=== PATIENT | male | born 1960 | race Caucasian/White ===

== ENCOUNTER 2016-12-15 14:23 | Inpatient (IN) | payer OTHER ==
--- NOTE | ~2016-12-15 | IDS ---
Interim Discharge Summary [facility] [address] [place]. [address] NAME: DOMINIQUE CORREIA : 64 STATUS : ADM IN [facility]#: [id number] AGE: 56 ADM/REG DATE : 12/15/16 MR#: [id number] REPORT SERV DATE: 12/18/16 DICTATED BY: WINNIE CASTELLANOS DATE: 12/18/16 REPORT STATUS : Draft TRANSCRIBED BY: MODL DATE: 12/18/16 ADMISSION DATE: 12/15/2016 DISCHARGE DATE: CONSULTANTS: 1. Dr. Shankar Licea, Infectious Disease. 2. Dr. Ryan Shirley, Psychiatry. PROBLEM LIST: 1. AIDS in a gentleman who has not been compliant with anti-retroviral therapy. 2. Community-acquired pneumonia versus Pneumocystis carinii pneumonia. 3. Antwr-pv-ikjlsnx neutropenia. 4. Thrombocytopenia. 5. Acute kidney injury. 6. Bipolar disorder with severe anxiety and insomnia. 7. Chronic hepatitis C without treatment. 8. Splenomegaly. 9. History of IV drug abuse. 10.Hypokalemia. 11.Chronic nausea. 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 The [facility] and has been seeing an [facility] Disease specialist with the [facility] in [place], but because of the patient's noncompliance with his anti-retroviral therapy, he was advised that it is better for him to not take it at all than it was to take it intermittently, so he has not taken it for quite some time now. The patient had gone to the ER at [facility] a few days ago with increased shortness of breath, increased cough, and was given a prescription for Bactrim and Tessalon Perles. He did not fill the Tessalon Perles prescription. He did fill the Bactrim prescription. He came to the emergency room at [facility] because of complaints of nausea, vomiting, and stated he was not keeping anything down and he was noted to have acute kidney injury and was felt on CT to have basilar pneumonia. The patient is at high risk for not only community-acquired pneumonia, but opportunistic infections including recurrent Pneumocystis. We have sent out a CD4 count, it is not back yet. He does not have any oral thrush. We have initiated full-dose Bactrim intravenously with Infectious Disease concurring. We initially had him on Rocephin and azithromycin, but his procalcitonin level was 0.05, so Infectious Disease discontinued the azithromycin and the Rocephin. The patient has significant neutropenia. On presentation, his white count was 2.6, currently dropped to 0.5 with an absolute neutrophil count of 250 right now. He has anemia that is also chronic and a thrombocytopenia that is also chronic, but worse now than it has been in the past. This could very well be on the basis of his advanced AIDS with hepatitis Interim Discharge Summary [facility] [address] [place]. [address] NAME: DOMINIQUE CORREIA : 64 STATUS : ADM IN PAT#: [id number] AGE: 56 ADM/REG DATE : 12/15/16 MR#: [id number] REPORT SERV DATE: 12/18/16 DICTATED BY: WINNIE CASTELLANOS DATE: 12/18/16 REPORT STATUS : Draft TRANSCRIBED BY: YELENA DATE: 12/18/16 C, but we were concerned about the possibility of Bactrim aggravating this, so we are considering whether to stop it or not. The patient also has a mild acute kidney injury. His creatinine on admission was 1.59, currently 1.44. He has good urinary output. The patient's complaints of nausea and vomiting have been somewhat challenging. He states that almost all foods make him gag and feel nauseated. He states this has been this way almost all of his life. He describes through childhood, teenage years, and through the service in the past, he had problems with nausea and vomiting. Of his own, he states that his nausea and vomiting gets much worse whenever he is nervous and upset. He has a history of bipolar disorder. He states [facility] but he and his daughter told me that that nurse practitioner "tells us that they are not allowed to prescribe anything for his bipolar disorder until he sees a psychiatrist." He also goes on to state that he has not been able to actually get in to see a psychiatrist at the [facility]. As a result of this, I did ask Dr. Ryan hSirley of Psychiatry to see him here. He felt the patient did have a mood disorder and a history of polysubstance abuse, but he did not want to initiate any psychotropic medications. However, the patient here was constantly restless, literally moving arms, legs, face, could not sleep, very anxious. This appeared to me to be quite out of control and the patient was feeling like it was making much more nauseated all the time. As a result, I talked with the patient about and started him on Depakote and have gradually added Klonopin. Since that, the patient has finally slept, which he stated he had not for about three nights and he is much more calm, much more cooperative, and in fact his nausea is improved. On the subject of the nausea, he is very much wanting GI to see him and to consider endoscopy. He himself realizes that it is very possible that his nausea is a chronic part of his psychiatric illness, but he wants to make sure. When he presented to the emergency room, they actually did do a CT scan of the abdomen and pelvis, which was only remarkable for the bibasilar infiltrate and for splenomegaly, it was otherwise unremarkable. His lipase has been low, and on physical exam, when he is talking and I am able to palpate his abdomen with my stethoscope, he has no pain reaction, but when asked, he states he always has pain in his abdomen, he is always nauseated. So, I have asked GI to at least consult and give their opinion on this situation. Infectious Disease, Dr. Licea is suggesting that the patient be on hospice because he has end-stage AIDS and is not able to be compliant with anti-retroviral therapy. I have tried to broach the subject with the patient and discussed his code status. At that point in time, he got very nervous, very irritable, and very tangential, that was prior to when he had been started on Klonopin, so I will try to have those discussions again with him. ADAM/YELENA Winnie Castellanos M.D. Interim Discharge Summary [address] [facility] [place] [place]. [address] NAME: DOMINIQUE CORREIA : 64 STATUS : ADM IN PAT#: [id number] AGE: 56 ADM/REG DATE : 12/15/16 MR#: [id number] REPORT SERV DATE: 12/18/16 DICTATED BY: WINNIE CASTELLANOS DATE: 12/18/16 REPORT STATUS : Draft TRANSCRIBED BY: REL DATE: 12/18/16 / [id number] CC: Winnie Castellanos M.D.
--- NOTE | ~2016-12-15 | CN ---
Consultation Report [facility] [address] [place]. [address] NAME: DOMINIQUE SLAUGHTER : 64 STATUS : ADM IN PAT#: [id number] AGE: 56 ADM/REG DATE : 12/15/16 MR#: [id number] REPORT SERV DATE: 12/19/16 DICTATED BY: SE HERNÁNDEZ DATE: 12/19/16 REPORT STATUS : Draft TRANSCRIBED BY: MODMatt DATE: 12/19/16 GI CONSULTATION DATE OF CONSULTATION: 12/19/2016 REASON FOR CONSULTATION: Evaluation and management of chronic nausea. HISTORY OF PRESENT ILLNESS: Mr. Slaughter is a 56-year-old male patient, who was admitted to [facility] on 12/15 with a chief complaint of nausea, vomiting, abdominal tenderness, as well as shortness of breath. The patient has a history of known HIV, who does not take antiretrovirals as he should. He states this is secondary to depression and confusion as if he has taken his meds or not. His daughter is present at the bedside during our conversation. He was last seen at [facility] in 2014 for Pneumocystis carinii pneumonia. He admits to not taking antiretrovirals. He also has a known history of hepatitis C. he has been seen by Dr. Licea of Infectious Disease as well as Psychiatry, Dr. Shirley while being here. He has AIDS and noncompliant with antiretrovirals, hepatitis C, community-acquired pneumonia versus Pneumocystis carinii pneumonia. Also, has acute on chronic neutropenia and thrombocytopenia with his absolute neutrophil count presently being 0.30; bipolar with anxiety, insomnia, and depression; history of IV drug abuse and chronic nausea. In regard to his nausea, he states that he has had problems with his stomach since the age of 15. He was never formally worked up for this by EGD or colonoscopy. He states that he was seen by a physician while he was in the [employer], but was just given antireflux medications, which really did nothing for his trouble. His daughter states that typically, he is able to eat and drink, but for the past two weeks prior to hospitalization, he had trouble keeping down water, she states he would drink and it would just come back up. Secondary to those complaints and her seeing that he was unable to keep up his hydration, she brought him in. He had a CT scan done on 12/15/2016, which was a noncontrasted exam. It revealed no definite acute abnormality in the abdomen or pelvis. He had splenomegaly, the spleen measured up to 15.1 cm, as well as bilateral infiltrates. Presently, he states he is still unable to take in much by mouth and keep it down. Secondary to his continued complaints of nausea and anorexia, GI consultation was requested. It appears by review of records that Infectious Disease has suggested that the patient be on hospice because of him being end-stage AIDS and not able to be compliant with his antiretroviral therapy; however, it appears the patient became irritable at this discussion and has not been broached again with it. I have discussed with the patient and his daughter, who is his medical power of divorce attorney who is present at the bedside, I would have to review the patient's labs with Dr. aRmos prior to putting him on for endoscopy secondary to his low white count, his low platelet count, as well as his low absolute neutrophil count. I did discuss with him if he is a candidate for EGD, he would be sedated with propofol and he would have increased risk. The risks, benefits, alternatives, and complications were detailed for them to include, but not limited to risk of bleeding, perforation, infection, reaction to medication, as well as cardiac and pulmonary side effects. He gives consent if he is deemed appropriate for endoscopy. Consultation Report [place] [place] [id number] [place]. [address] NAME: DOMINIQUE SLAUGHTER : 64 STATUS : ADM IN [facility]#: [id number] AGE: 56 ADM/REG DATE : 12/15/16 MR#: [id number] REPORT SERV DATE: 12/19/16 DICTATED BY: SE HERNÁNDEZ DATE: 12/19/16 REPORT STATUS : Draft TRANSCRIBED BY: MODL DATE: 12/19/16 PAST MEDICAL HISTORY: Positive for HIV/AIDS, hepatitis C, IV drug abuse, bipolar disorder, anxiety, depression, COPD, reflux, tobacco abuse. PAST SURGICAL HISTORY: Dental extraction. SOCIAL HISTORY: Smoking one pack per day. Positive for cocaine. Cessation of alcohol 13+ years ago. FAMILY HISTORY: Noncontributory from a GI standpoint. ALLERGIES: NO KNOWN DRUG ALLERGIES. HOME MEDICATIONS: Tylenol and Bactrim. REVIEW OF SYSTEMS: A 10-point review of systems obtained with pertinent positives addressed in the history of present illness. PERTINENT LABORATORY DATA: Sodium 131, potassium 3.8, BUN is 8, creatinine 1.38. White count 0.5, hemoglobin 11, hematocrit is 29.1, platelet count 41. CO2 of 19. Albumin 2.9. ANC 0.30. PHYSICAL EXAMINATION: VITAL SIGNS: Temperature 97.4, pulse 60, respirations 16, blood pressure 82/51. NEURO: Reveals a chronically ill-appearing male, resting in bed, who awakens to name. He is oriented x3, but slow to answer. GENERAL: He is cooperative, in no obvious acute distress. He is thin, frail, and cachectic in appearance. HEAD, EARS, EYES, NOSE, AND THROAT: Anicteric. Pupils equal, round, reactive to light and accommodation. Normocephalic and atraumatic. LUNGS: Decreased throughout with normal respiratory effort exhibited. CARDIOVASCULAR SYSTEM: Regular rate and rhythm. ABDOMEN: Soft and flat with very minimal tenderness to the bilateral lower abdominal quadrants. He has active bowel sounds in all four quadrants. EXTREMITIES: No edema. Normal distal pulses. SKIN: Warm, dry, and intact. ASSESSMENT: 1. Nausea, acute on chronic. 2. HIV/AIDS with history of hepatitis C, nontreated. 3. Pneumonia. 4. Neutropenia. 5. Bipolar disorder. PLAN: Consultation Report [address] [place]. [address] NAME: DOMINIQUE SLAUGHTER : 64 STATUS : ADM IN [facility]#: [id number] AGE: 56 ADM/REG DATE : 12/15/16 MR#: [id number] REPORT SERV DATE: 12/19/16 DICTATED BY: SE HERNÁNDEZ DATE: 12/19/16 REPORT STATUS : Draft TRANSCRIBED BY: MODL DATE: 12/19/16 1. Continue his PPI and H2 inhibitor. 2. We will discuss with Dr. Ramos EGD, question if he can have this secondary to decreased platelets and absolute neutrophil count, hyponatremia. If able to undergo, we will set up for 12/20. If not, we will watch labs and potential EGD when able to undergo endoscopy. BRYON/MODL Se GABRIELA Mina / [id number] CC: Rigo Castellanos M.D.
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
--- NOTE | ~2016-12-15 | HP ---
History And Physical [facility] [address] [place]. [address] NAME: DOMINIQUE CORREIA : 64 STATUS : ADM IN [facility]#: [id number] AGE: 56 ADM/REG DATE : 12/15/16 MR#: [id number] REPORT SERV DATE: 12/16/16 DICTATED BY: WINNIE CASTELLANOS DATE: 12/15/16 REPORT STATUS : Draft TRANSCRIBED BY: MODL DATE: 12/15/16 DATE OF ADMISSION: 12/15/2016 IDENTIFYING DATA: A 56-year-old white male whose PCP is at the [facility]. He only knows that it is a new doc there and the name starts with W. Infectious Disease in [facility] is Dr. Curtis and he also sees a nurse practitioner on Mental Health in [place]. CHIEF COMPLAINT: Nausea, vomiting, tender stomach, shortness of breath. HISTORY OF PRESENT ILLNESS: History of present illness is obtained by talking directly with the patient as well as his daughter with permission as well as speaking with the ER providers and reviewing [employer] and [employer]. The patient has a known HIV, not taking antiretrovirals. He was last hospitalized in our [facility] in 2014 when he had Pneumocystis carinii pneumonia. The patient at that time was successfully treated and released. The patient states that he has not been taking his anti-retroviral therapy because his Infectious Disease doctor told him that if he was not going to take it regularly, not to take it at all. The patient admits that at best he was on it maybe for a few months at a time and then would intermittently miss often. He unfortunately today provides a fairly vague and tangential history. His daughter at bedside helps. It sounds like he has been having nausea and intermittent vomiting for at least 9-10 days. He is quite vague stating that when I swallow things it comes back up. He denies things sticking in his throat. It sounds like that he got more short of breath with increased cough and so on Monday of this week, went to the emergency room at [facility] and was reportedly given a prescription for Bactrim and Tessalon Perles, did not fill the Tessalon Perles, took the Bactrim and had worsening of his nausea and vomiting, not able to keep things down, so came to the emergency room today and was felt on CT to have some basilar pneumonia and acute kidney injury, so we were asked to admit him to the hospital. He states he has diffuse abdominal pain. He has a difficult time describing it or what worsens or improves it. He is not using any qkdn-gmd-hlcdjmf medicines. REVIEW OF SYSTEMS: He states his fingertips get numb if they are cold and has been for at least a year. He has muscle cramps for at least a year that is in hands and legs. He has a sore on the right side of his chin for the last week. His weight has not changed in the last year. He states he gets fidgety and restless when he is given narcotics, but then he and daughter described that he has that way often anyway. He is not familiar with the term tardive dyskinesia. He denies fever, diarrhea, rectal bleeding, melena, dysuria, edema, or rash. ALLERGIES: NO KNOWN DRUG ALLERGIES. PAST MEDICAL HISTORY: He denies any history of diabetes, hypertension, heart disease, stroke, seizure, biliary tract disease, chronic kidney disease, thyroid disease, or cancer. History And Physical [address] [address] NAME: DOMINIQUE CORREIA : 64 STATUS : ADM IN [facility]#: [id number] AGE: 56 ADM/REG DATE : 12/15/16 MR#: [id number] REPORT SERV DATE: 12/16/16 DICTATED BY: WINNIE CASTELLANOS DATE: 12/15/16 REPORT STATUS : Draft TRANSCRIBED BY: MODMatt DATE: 12/15/16 He has been known to have HIV for five years. It may have there and there longer, he just was diagnosed then. He has hepatitis C, but has not had any treatment for it either. He has a history of IV drug abuse, opiates, and then he states he switched over to cocaine. He still smokes crack at times, had prior psychiatric evaluations reportedly and previous suicidal attempts and daughter states he is forgetful. He has a history of COPD and remote history of reflux and peptic ulcer and in 2013, he was in the [facility]. The daughter states it started with a bladder infection, a low white blood count, and sounds like sepsis and kidney injury. He did not end up on the ventilator or dialysis, but [facility]. HOME MEDICATIONS: No prescriptions. No wctm-tze-eqwxkrrw. SURGERIES: He had dental extraction, no others. SOCIAL HISTORY: He still smokes about one pack per day. He still uses cocaine. Reportedly quit using alcohol about 13 years ago. According to the daughter, it was just social use. Please see above comments about prior cocaine and current crack and prior IV drug abuse with opiates that he reportedly quit about three years ago. He lives with a 12-year-old son. 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 He states he is not on social security disability, but [facility]. FAMILY HISTORY: Mother with hypertension, heart disease, pacemaker, peripheral neuropathy, hyperlipidemia, and depression. Father with diabetes, hypertension, hyperlipidemia, and dementia. One sister severely injured in a motor vehicle accident, another sibling in a motor vehicle accident. Siblings with depression as well. DATA: Chest x-ray done as a single portable film today reveals questionable hazy infiltrate in the right lung base, otherwise clear lung antony. Normal cardiac silhouette. Normal bony architecture. CT scan of the abdomen and pelvis read by Radiology did show no definitive acute abnormality within the abdomen or pelvis, but there was splenomegaly with spleen being 15.1 cm and mild patchy density in the peripheral infiltrates within the basilar aspects of both lung antony and some ground-glass infiltrate in the right middle lobe and lingula, felt to be inflammatory or infectious. Arterial blood gas on room air; pH 7.46, pCO2 31, pO2 85, bicarbonate is 21. Sodium 135, potassium 3.7, chloride 99, CO2 is 21, BUN 12, creatinine 1.59 and by comparison, his creatinine three days ago was 1.24 and in February of 2015, 0.89. Glucose is 84, calcium 8.2, lipase is 65. The CMP is otherwise normal. His white count is 2.3, hemoglobin is 14.1, platelets are 91,000. Urinalysis today unremarkable. Previous CD4 count was 14 in February 2015. PHYSICAL EXAMINATION: VITAL SIGNS: Temperature is 98, pulse 100, respirations 24, blood pressure 130/70, O2 saturation is 94% on 2 L. GENERAL: Well-developed male, who appears older than his stated age, appears chronically ill and uncomfortable and has just almost constantly moving arms and legs and torso. History And Physical [place] [id number] [facility] [place]. [address] NAME: DOMINIQUE CORREIA : 64 STATUS : ADM IN PAT#: [id number] AGE: 56 ADM/REG DATE : 12/15/16 MR#: [id number] REPORT SERV DATE: 12/16/16 DICTATED BY: WINNIE CASTELLANOS DATE: 12/15/16 REPORT STATUS : Draft TRANSCRIBED BY: YELENA DATE: 12/15/16 HEENT: Head is atraumatic. Pupils are equal, round, and reactive to light. Extraocular motions are intact. No scleral icterus noted. Ear canals and TMs unremarkable. Nose, noninflamed externally. Septum midline. Nares patent. Mouth dry. Good gag. No redness of the throat or gums. No thrush noted. NECK: Supple. No lymph node or thyroid enlargement. The carotids have good pulses. No bruits. LUNGS: Crackles in both bases. Good air flow in the mid and upper lung antony, mildly increased respiratory effort. HEART: Tachycardic and regular without gallop, click, murmur, or rub. ABDOMEN: Bowel sounds are positive. Soft, nondistended. He has some tenderness diffusely, but is very difficult to reproduce on much of my physical exam with palpation of his abdomen. He did not seem to have any pain. No rebound. No mass. No organomegaly palpated. No bruits noted. EXTREMITIES: Thin. No clubbing, no cyanosis, no edema. No actively inflamed joints or skin. NEUROLOGIC: Alert, oriented, cooperative with mentation that is intact. His motor is 2/5 in all four extremities. He has constant restless movement of his arms and legs and his head. No Babinski or clonus noted. Cranial nerves II through XII are grossly normal. ASSESSMENT: 1. Nausea, vomiting, abdominal pain that has certainly gotten worse since he has been on Bactrim, but may have already been present to a variable degree prior to that. 2. Recent shortness of breath, cough with pulmonary infiltrates suggesting community- acquired pneumonia as well as possible opportunistic pneumonia, such as Pneumocystis. 3. Leukopenia and thrombocytopenia, probably related to his underlying hepatitis C and human immunodeficiency virus. 4. Acquired immune deficiency syndrome, not on anti-retroviral therapy with a previously very low CD4 count of 14 back in February 2015. The patient has been very noncompliant with his therapy. 5. History of bipolar disorder and anxiety and depression. 6. Acute kidney injury, probably from volume depletion. 7. Possible tardive dyskinesia. 8. See past medical history. PLAN: 1. Admit to a telemetry unit. 2. Routine blood cultures have already been drawn. I have asked the lab and the nurse has already drawing special blood cultures for AFB. 3. We are going to have a CD4 count and LDH. We will check urine antigens and procalcitonin. We are going to start him on azithromycin and Rocephin, but we are also going to go ahead and give him trimethoprim and sulfamethoxazole intravenously 5 mg/kg IV three times a day. Follow up his renal function closely. We will ask Infectious Disease to see him as well. We are also going to check a urine drug screen, and we will put him on some Protonix for his nausea and vomiting at this point in time. Daughter updated at the bedside at this time. History And Physical [address] [address] NAME: DOMINIQUE CORREIA : 64 STATUS : ADM IN [facility]#: [id number] AGE: 56 ADM/REG DATE : 12/15/16 MR#: [id number] REPORT SERV DATE: 12/16/16 DICTATED BY: WINNIE CASTELLANOS DATE: 12/15/16 REPORT STATUS : Draft TRANSCRIBED BY: YELENA DATE: 12/15/16 ADAM/YELENA Winnie Castellanos M.D. / [id number] CC: Winnie Castellanos M.D.
--- NOTE | ~2016-12-15 | CN ---
Consultation Report [facility] [address] [place]. [address] NAME: DOMINIQUE CORREIA : 64 STATUS : ADM IN PAT#: [id number] AGE: 56 ADM/REG DATE : 12/15/16 MR#: [id number] REPORT SERV DATE: 12/16/16 DICTATED BY: KAVON GE DATE: 12/16/16 REPORT STATUS : Draft TRANSCRIBED BY: MODL DATE: 12/16/16 INFECTIOUS DISEASE CONSULT DATE OF CONSULTATION: REASON FOR REFERRAL: Evaluation and treatment of illness in a patient with end-stage AIDS. HISTORY OF PRESENT ILLNESS: The patient is a 56-year-old male. He has been told he has bipolar disorder. That diagnosis is unclear at this time, but has been increasingly dysfunctional. He has been diagnosed with HIV infection for many years. He was here two years ago with respiratory failure. He was on the ventilator and was ultimately diagnosed with Pneumocystis pneumonia. His CD4 count at that time was 14. He had not been here with any anti-retroviral regimen prior to that and the patient himself states it is due to depression and inability to remember to take his medicine. He was eventually told after many attempts and failures by his HIV specialist at the [facility] where he is followed, that he should simply stop the medication rather than causing resistance with intermittent therapy and so, he is not on any regular therapy for the HIV. He has been chronically nauseous by the patient's account. He states that, that grew worse accompanied by cough and shortness of breath over the last two weeks. He was seen in the emergency room at [facility] four days ago. The chest x-ray then was read as normal. He was not hypoxic on blood gas. His white blood cell count was 2.6, but that is chronically low. In fact, he has pancytopenia, likely due to advanced HIV. He was given Septra, but states he was too nauseous to take it, felt worse and worse, so came into the emergency room here last night and was admitted. He had no fever. White blood cell count remains low. Blood gas was not repeated, though O2 saturation on room air was 95%. A chest x-ray now does show faint bilateral infiltrates. He has been started on Rocephin, azithromycin, and IV Septra. He has continued to complain of nausea and vomiting. He does have an elevated LDH of 234. He has a procalcitonin of less than 0.05. No history of recent unusual environmental exposures. He lives in [place]. He has not traveled outside this area recently. He continues to be followed at the [facility], both here and by an infectious disease specialist in [place]. PAST MEDICAL HISTORY: Otherwise noncontributory. MEDICATIONS: As described above. ALLERGIES: NO KNOWN ALLERGIES. SOCIAL HISTORY: He does continue to smoke and has continued to use cocaine. 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 FAMILY HISTORY: Noncontributory. PHYSICAL EXAMINATION: GENERAL: An anxious, adult male, frequently gagging, becomes agitated if Consultation Report [address] [place]. [address] NAME: DOMINIQUE CORREIA : 64 STATUS : ADM IN [facility]#: [id number] AGE: 56 ADM/REG DATE : 12/15/16 MR#: [id number] REPORT SERV DATE: 12/16/16 DICTATED BY: KAVON GE DATE: 12/16/16 REPORT STATUS : Draft TRANSCRIBED BY: YELENA DATE: 12/16/16 questioned repeatedly. VITAL SIGNS: His temperature here has been normal thus far at 97.9 most recently with a pulse of 72, respirations 16, blood pressure 116/64. Weight 61 kg. HEENT: Sclerae are clear. He has been throwing up, so it is really hard to see if there are any oral lesions. LUNGS: There are bilateral faint crackles in the lower lung antony. HEART: Regular rate and rhythm. ABDOMEN: Soft, mildly tender. Positive bowel sounds were heard. No masses palpated. EXTREMITIES: Without clubbing, cyanosis. No rash is noted. LABORATORY DATA: His white count is 1.5, hematocrit 30.4, platelets 77, and 67 segs and no bands on the differential. BUN and creatinine 13 and 1.45. Blood cultures taken on the remain negative. They were repeated last evening. IMPRESSION: 1. Advanced acquired immunodeficiency syndrome. Really rather surprised that he has survived the last two years with end-stage disease. 2. Acute illness that with marked, in particular by, shortness of breath and now with a faint infiltrates on the chest x-ray, I am most suspicious of Pneumocystis. I think that it is not a typical bacterial infection with the low procalcitonin. 3. Chronic nausea and vomiting. It is related at least in part to the human immunodeficiency virus. RECOMMENDATIONS: 1. Treat for Pneumocystis with IV Septra since he is nauseated. 2. I do not think steroids are necessary based on his O2 saturation at this time. 3. Stop the other antibiotics. 4. Since he has not been able or willing to take HIV medications, he really should be on hospice, but not sure if he would be accepting of that or if it is even [facility]. Finally, I will follow the patient with you. I appreciate very much your consulting on this patient. ELROY/YELENA Kavon Ge M.D. / [id number] CC: Rigo Castellanos M.D.
--- NOTE | ~2016-12-15 | DS ---
Discharge Summary [facility] [address] [place]. [address] NAME: DOMINIQUE CORREIA : 64 STATUS : DIS IN PAT#: [id number] AGE: 56 ADM/REG DATE : 12/15/16 MR#: [id number] REPORT SERV DATE: 12/23/16 DICTATED BY: WINNIE SEWELL DATE: 12/22/16 REPORT STATUS : Draft TRANSCRIBED BY: MODL DATE: 12/22/16 ADMISSION DATE: 12/15/2016 DISCHARGE DATE: 12/22/2016 PCP: PATR[facility] of [facility]. CONSULTING PHYSICIAN: Dr. Whittington, Palliative Care. PSYCHIATRY: Dr. Shirley. GI: Dr. Ramos. FINAL DIAGNOSES: 1. Pancytopenia. 2. Pneumocystis pneumonia. 3. Aids with undetectable CD4. 4. Hepatitis C. 5. Status post acute kidney injury. 6. Resolved nausea, vomiting, and abdominal pain. 7. Bipolar anxiety and attention deficit disorder. 8. Noncompliance. 9. Tobacco abuse. 10.Splenomegaly. DIAGNOSTIC EXAMS: MRI of the brain showing mild to moderate generalized atrophy. No evidence of focal inflammatory changes to suggest HIV encephalopathy or toxoplasmosis meningeal surfaces, sinuses, and mastoids demonstrate no active inflammatory changes. HOSPITAL COURSE: Please refer to the H and P done by Dr. Castellanos on 12/16 and his interim discharge on 12/18. Since I took care of this patient, the patient is being seen by ID and GI. ID basically switched the patient from Bactrim to atovaquone for the treatment of the Pneumocystis pneumonia, however, he has been noncompliant with his HIV medications and he does not have a good prognosis on this if the patient would not be complying with this. He basically said that the patient will need to follow up with his outpatient HIV doctor likely [facility] and recommended a full treatment of atovaquone. Meanwhile, GI could not do any scope on the patient as he remains pancytopenic, which is likely due to his advanced AIDS. They said that they are willing to do the scope when the pancytopenia improves, however, at this point, it is very doubtful, they signed off as well. We got Palliative Care involved and they said that they are willing to follow up the patient on an outpatient basis, and at this point, the patient and family does not want to consider hospice as they had a bad experience with them, but they are willing to go to palliative care and they understand that it is more of a palliative treatment that he would be needing right now. The patient will now be discharged with the above diagnosis. He will be on the following medications; Adderall 5 mg twice a day, atovaquone 1.5 g a day for 15 more days, Depakote 500 mg twice a day, Pepcid 40 mg at bedtime, nicotine patch 21 mg for one week then 14 mg a week then 7 mg a week. He is not to smoke when he is on the nicotine patch. Nystatin oral Discharge Summary [address] [place]. [address] NAME: DOMINIQUE CORREIA : 64 STATUS : DIS IN [facility]#: [id number] AGE: 56 ADM/REG DATE : 12/15/16 MR#: [id number] REPORT SERV DATE: 12/23/16 DICTATED BY: WINNIE SEWELL DATE: 12/22/16 REPORT STATUS : Draft TRANSCRIBED BY: YELENA DATE: 12/22/16 suspension 500,000 units 5 mL every six hours, Phenergan 25 mg p.o. q.8 p.r.n. nausea and vomiting. The patient will follow up with his doctor in [facility], follow up with [facility], follow up with Dr. Whittington. This has been explained to the patient in front of the daughter, and they agreed and understood the plan. TIME SPENT: 45 minutes. MIKEL/YELENA Winnie Sewell M.D. / [id number] CC: Winnie Sewell M.D.
[2016-12-15 12:57] LABS: BASOPHILS 0.4 %; BASOPHILS ABSOLUTE 0.01 10/3/uL (0.0-0.16); EOSINOPHILS 4.8 %; EOSINOPHILS ABSOLUTE 0.11 10/3/uL (0.0-0.53); HEMOGLOBIN 14.1 g/dL (13.6-17.8); LYMPHOCYTES 18.7 %; LYMPHOCYTES ABSOLUTE 0.43 10/3/uL (0.67-4.30); MEAN CORPUS HGB CONC 37.1 g/dL (32.0-36.0); MEAN CORPUSCULAR HEMOGLOB 34.4 pg (26.0-34.0); MEAN CORPUSCULAR VOLUME 92.7 fL (80-100); MEAN PLATELET VOLUME 10.5 fL (9.2-13.0); MONOCYTES 4.8 %; MONOCYTES ABSOLUTE 0.11 10/3/uL (0.21-1.20); NEUTROPHILS 71.3 %; NEUTROPHILS ABSOLUTE 1.64 10/3/uL (2.02-8.40); PLATELET COUNT 91 10/3/uL (150-400); RBC DISTRIBUTION WIDTH 13.1 % (12.0-16.0)
[2016-12-15 13:10] LABS: A/G RATIO 0.8 (0.7-1.9); ALBUMIN 3.6 G/DL (3.5-5.0); CALCIUM, SERUM 8.2 MG/DL (8.5-10.4); CHLORIDE, SERUM 99 MMOL/L (96-112); CO2 (CARBON DIOXIDE) 25 MMOL/L (24-34); CREATININE 1.59 MG/DL (0.70-1.30); GFR AFRICAN AMERICAN 56 ML/MIN (>=60); GFR NON AFRICAN AMERICAN 48 ML/MIN (>=60); GLOBULIN 4.6 G/DL (2.5-4.1); GLUCOSE, SERUM 84 MG/DL (60-99); POTASSIUM, SERUM 3.7 MMOL/L (3.5-5.3); SGOT(AST) 18 U/L (5-40); SGPT(ALT) 16 U/L (5-65); SODIUM, SERUM 135 MMOL/L (135-148); TOTAL BILIRUBIN 0.8 MG/DL (0-1.2); TOTAL PROTEIN 8.2 G/DL (6.0-8.5)
[2016-12-15 13:12] LABS: ALKALINE PHOSPHATASE 79 U/L (45-117); BUN (BLOOD UREA NITROGEN) 12 MG/DL (6-23)
[2016-12-15 13:20] LABS: ASCORBIC ACID (UR NOT ORDER) NEG (NEG); BILIRUBIN, URINE NEGATIVE (NEG); ER URINALYSIS TAT 0 Hrs 11 Mins; KETONE, URINE NEGATIVE (NEG); LEUKOCYTE ESTERASE(NOT OR NEG (NEG); NITRITE (URINE) NEG (NEG); WBC (NOT ORDERED) (RFLEX) 2 (0-5)
[2016-12-15 13:33] LABS: ER CBC TAT 0 Hrs 44 Mins; WHITE BLOOD CELLS 2.3 10/3/uL (4.5-10.5)
[2016-12-15 13:35] LABS: MANUAL DIFF NO %
[~2016-12-15 14:23] MED LIST: *DENIES; ATV.5 PO; NICODERM C21 MG/241 TOP; NYS500UDL PO; P20 PO; PEP20 PO; SEPTRA DS1 TAB PO
[2016-12-15] MEDS ORDERED: SEPTRA DS1 TAB PO (18:41)
[2016-12-15] MEDS ORDERED: BACTRIM DS1 TAB PO (18:44)
[2016-12-15] MEDS ORDERED: T PO (18:45)
[2016-12-15 19:02] LABS: LACTATE 1.3 MMOL/L (0.3-2.4)
[2016-12-15 22:21] LABS: INTERNATIONAL NORMAL RATI 1.2 UNITS (-); PARTIAL THROMBO TIME 36.9 SEC (22.5-37.2); PROTIME (NOT ORD) 15.2 SEC (12.0-14.5)
[2016-12-15 22:25] LABS: AMPHETAMINES (NOT ORD) NEG (NEG); BARBITURATES (NOT ORDERED NEG (NEG); BENZODIAZEPINES (NOT ORD) NEG (NEG); CANNABINOIDS (THC) NEG (NEG); COCAINE (NOT ORDERED) NEG (NEG); OPIATES NEG (NEG); PHENCYCLIDINE(PCP) NEG (NEG); TRICYCLICS NEG (NEG)
[2016-12-15 22:40] LABS: TROPONIN I <0.02 NG/ML (<0.05)
[2016-12-16 00:06] LABS: PROCALCITONIN 0.05 ng/mL (<0.5)
[2016-12-16 06:48] LABS: HEMOGLOBIN 11.4 g/dL (13.6-17.8); MEAN CORPUS HGB CONC 37.5 g/dL (32.0-36.0); MEAN CORPUSCULAR HEMOGLOB 34.8 pg (26.0-34.0); MEAN CORPUSCULAR VOLUME 92.7 fL (80-100); MEAN PLATELET VOLUME 11.1 fL (9.2-13.0); PLATELET COUNT 77 10/3/uL (150-400); RED CELL COUNT 3.28 10/6/uL (4.7-6.1)
[2016-12-16 06:53] LABS: HEMATOCRIT 30.4 % (40.0-51.0); MANUAL DIFF YES %; WHITE BLOOD CELLS 1.5 10/3/uL (4.5-10.5)
[2016-12-16 07:14] LABS: BUN (BLOOD UREA NITROGEN) 13 MG/DL (6-23); CALCIUM, SERUM 7.6 MG/DL (8.5-10.4); CHLORIDE, SERUM 101 MMOL/L (96-112); CO2 (CARBON DIOXIDE) 21 MMOL/L (24-34); CREATININE 1.45 MG/DL (0.70-1.30); GFR AFRICAN AMERICAN 63 ML/MIN (>=60); GFR NON AFRICAN AMERICAN 54 ML/MIN (>=60); GLUCOSE, SERUM 77 MG/DL (60-99); POTASSIUM, SERUM 3.5 MMOL/L (3.5-5.3); SGOT(AST) 23 U/L (5-40); SGPT(ALT) 11 U/L (5-65); SODIUM, SERUM 135 MMOL/L (135-148); TOTAL BILIRUBIN 0.6 MG/DL (0-1.2)
[2016-12-16 07:15] LABS: A/G RATIO 0.8 (0.7-1.9); ALBUMIN 2.8 G/DL (3.5-5.0); ALKALINE PHOSPHATASE 61 U/L (45-117); GLOBULIN 3.7 G/DL (2.5-4.1); TOTAL PROTEIN 6.5 G/DL (6.0-8.5)
[2016-12-16 07:28] LABS: BASOPHILS 1 %; BASOPHILS ABSOLUTE (CALC) 0.02 10/3/uL (0.0-0.16); EOSINOPHILS 5 %; EOSINOPHILS ABSOLUTE (CALC) 0.08 10/3/uL (0.0-0.53); LYMPHOCYTES 22 %; LYMPHOCYTES ABSOLUTE (CALC) 0.33 10/3/uL (0.67-4.30); MONOCYTES 5 %; MONOCYTES ABSOLUTE (CALC) 0.08 10/3/uL (0.21-1.20); NEUTROPHILS ABSOLUTE (CALC) 1.01 10/3/uL (2.02-8.40); PLATELET ESTIMATE DEC (ADEQUATE); RBC MORPHOLOGY NORM (NORMAL); SEGMENTED NEUTROPHIL (0) 67 %; TOTAL NUCLEATED CELLS 100
[2016-12-17 05:02] LABS: HEMATOCRIT 27.8 % (40.0-51.0); HEMOGLOBIN 10.3 g/dL (13.6-17.8); MEAN CORPUS HGB CONC 37.1 g/dL (32.0-36.0); MEAN CORPUSCULAR HEMOGLOB 33.9 pg (26.0-34.0); MEAN CORPUSCULAR VOLUME 91.4 fL (80-100); MEAN PLATELET VOLUME 10.2 fL (9.2-13.0); PLATELET COUNT 64 10/3/uL (150-400); RBC DISTRIBUTION WIDTH 12.8 % (12.0-16.0); RED CELL COUNT 3.04 10/6/uL (4.7-6.1)
[2016-12-17 05:08] LABS: MANUAL DIFF YES %
[2016-12-17 05:20] LABS: ALBUMIN 2.9 G/DL (3.5-5.0); ALKALINE PHOSPHATASE 55 U/L (45-117); CALCIUM, SERUM 7.4 MG/DL (8.5-10.4); CHLORIDE, SERUM 101 MMOL/L (96-112); CO2 (CARBON DIOXIDE) 23 MMOL/L (24-34); CREATININE 1.38 MG/DL (0.70-1.30); GFR AFRICAN AMERICAN 67 ML/MIN (>=60); GFR NON AFRICAN AMERICAN 58 ML/MIN (>=60); GLUCOSE, SERUM 75 MG/DL (60-99); POTASSIUM, SERUM 3.4 MMOL/L (3.5-5.3); SGOT(AST) 24 U/L (5-40); SGPT(ALT) 8 U/L (5-65); SODIUM, SERUM 135 MMOL/L (135-148); TOTAL BILIRUBIN 0.5 MG/DL (0-1.2); TOTAL PROTEIN 5.9 G/DL (6.0-8.5)
[2016-12-17 05:28] LABS: BUN (BLOOD UREA NITROGEN) 8 MG/DL (6-23)
[2016-12-17 06:09] LABS: EOSINOPHILS 2 %; EOSINOPHILS ABSOLUTE (CALC) 0.02 10/3/uL (0.0-0.53); LYMPHOCYTES 22 %; LYMPHOCYTES ABSOLUTE (CALC) 0.22 10/3/uL (0.67-4.30); MONOCYTES 3 %; MONOCYTES ABSOLUTE (CALC) 0.03 10/3/uL (0.21-1.20); NEUTROPHILS ABSOLUTE (CALC) 0.73 10/3/uL (2.02-8.40); PLATELET ESTIMATE DEC (ADEQUATE); SEGMENTED NEUTROPHIL (0) 73 %; TOTAL NUCLEATED CELLS 100
[2016-12-18 06:12] LABS: HEMATOCRIT 25.6 % (40.0-51.0); HEMOGLOBIN 9.8 g/dL (13.6-17.8); MEAN CORPUS HGB CONC 38.3 g/dL (32.0-36.0); MEAN CORPUSCULAR HEMOGLOB 35.3 pg (26.0-34.0); MEAN CORPUSCULAR VOLUME 92.1 fL (80-100); MEAN PLATELET VOLUME 9.7 fL (9.2-13.0); PLATELET COUNT 53 10/3/uL (150-400); RBC DISTRIBUTION WIDTH 13.1 % (12.0-16.0); RED CELL COUNT 2.78 10/6/uL (4.7-6.1)
[2016-12-18 06:18] LABS: WHITE BLOOD CELLS 0.5 10/3/uL (4.5-10.5)
[2016-12-18 06:19] LABS: MANUAL DIFF YES %
[2016-12-18 06:20] LABS: BUN (BLOOD UREA NITROGEN) 8 MG/DL (6-23); CALCIUM, SERUM 7.5 MG/DL (8.5-10.4); CHLORIDE, SERUM 98 MMOL/L (96-112); CREATININE 1.44 MG/DL (0.70-1.30); GFR AFRICAN AMERICAN 63 ML/MIN (>=60); GFR NON AFRICAN AMERICAN 55 ML/MIN (>=60); POTASSIUM, SERUM 3.3 MMOL/L (3.5-5.3); SODIUM, SERUM 134 MMOL/L (135-148)
[2016-12-18 06:23] LABS: CO2 (CARBON DIOXIDE) 28 MMOL/L (24-34); GLUCOSE, SERUM 97 MG/DL (60-99)
[2016-12-18 08:09] LABS: BAND NEUTROPHILS 3 %; EOSINOPHILS 9 %; EOSINOPHILS ABSOLUTE (CALC) 0.05 10/3/uL (0.0-0.53); LYMPHOCYTES 36 %; LYMPHOCYTES ABSOLUTE (CALC) 0.18 10/3/uL (0.67-4.30); MONOCYTES 5 %; MONOCYTES ABSOLUTE (CALC) 0.03 10/3/uL (0.21-1.20); NEUTROPHILS ABSOLUTE (CALC) 0.25 10/3/uL (2.02-8.40); PLATELET ESTIMATE DEC (ADEQUATE); SEGMENTED NEUTROPHIL (0) 47 %; TOTAL NUCLEATED CELLS 100
[2016-12-18 08:10] LABS: POLYCHROMASIA 1+ (2-5/OIF) (0-1/OIF); TEARDROP SHAPED RBCS OCC (0-2/OIF)
[2016-12-18 08:11] LABS: ELLIPTOCYTES 1+ (3-10/OIF) (0-2/OIF); TOXIC GRANULATION SLT
[2016-12-19 06:12] LABS: BUN (BLOOD UREA NITROGEN) 8 MG/DL (6-23); CALCIUM, SERUM 7.6 MG/DL (8.5-10.4); CHLORIDE, SERUM 100 MMOL/L (96-112); CREATININE 1.38 MG/DL (0.70-1.30); GFR AFRICAN AMERICAN 67 ML/MIN (>=60); GFR NON AFRICAN AMERICAN 58 ML/MIN (>=60); POTASSIUM, SERUM 3.8 MMOL/L (3.5-5.3); SODIUM, SERUM 131 MMOL/L (135-148)
[2016-12-19 06:13] LABS: CO2 (CARBON DIOXIDE) 19 MMOL/L (24-34); GLUCOSE, SERUM 71 MG/DL (60-99)
[2016-12-19 08:31] LABS: HEMATOCRIT 29.1 % (40.0-51.0); MEAN CORPUS HGB CONC 37.8 g/dL (32.0-36.0); MEAN CORPUSCULAR HEMOGLOB 34.7 pg (26.0-34.0); MEAN CORPUSCULAR VOLUME 91.8 fL (80-100); MEAN PLATELET VOLUME 8.5 fL (9.2-13.0); PLATELET COUNT 41 10/3/uL (150-400); RBC DISTRIBUTION WIDTH 12.8 % (12.0-16.0); RED CELL COUNT 3.17 10/6/uL (4.7-6.1); WHITE BLOOD CELLS 0.5 10/3/uL (4.5-10.5)
[2016-12-19 08:33] LABS: MANUAL DIFF YES %
[2016-12-19 08:53] LABS: EOSINOPHILS 5 %; EOSINOPHILS ABSOLUTE (CALC) 0.03 10/3/uL (0.0-0.53); LYMPHOCYTES 30 %; LYMPHOCYTES ABSOLUTE (CALC) 0.15 10/3/uL (0.67-4.30); MONOCYTES 5 %; MONOCYTES ABSOLUTE (CALC) 0.03 10/3/uL (0.21-1.20); SEGMENTED NEUTROPHIL (0) 60 %; TOTAL NUCLEATED CELLS 20
[2016-12-19 08:54] LABS: HYPOCHROMIA 1+ (3-10/OIF) (0-2/OIF); MICROCYTES 1+ (5-10/OIF) (0-5/OIF)
[2016-12-19 13:42] LABS: CD4 % 3.9 % (30.0-65.0); CD4 LYMPH % 1.5 % (15.0-48.0); CD4 SOURCE Blood (())
[2016-12-20 06:15] LABS: BUN (BLOOD UREA NITROGEN) 7 MG/DL (6-23); CALCIUM, SERUM 7.6 MG/DL (8.5-10.4); CHLORIDE, SERUM 97 MMOL/L (96-112); CREATININE 1.35 MG/DL (0.70-1.30); GFR AFRICAN AMERICAN 68 ML/MIN (>=60); GFR NON AFRICAN AMERICAN 59 ML/MIN (>=60); GLUCOSE, SERUM 69 MG/DL (60-99); PHOSPHORUS, SERUM 2.9 MG/DL (2.5-4.5); POTASSIUM, SERUM 3.9 MMOL/L (3.5-5.3); SODIUM, SERUM 131 MMOL/L (135-148)
[2016-12-20 06:16] LABS: CO2 (CARBON DIOXIDE) 24 MMOL/L (24-34)
[2016-12-20 06:21] LABS: BASOPHILS 0 %; EOSINOPHILS ABSOLUTE 0.03 10/3/uL (0.0-0.53); HEMATOCRIT 27.5 % (40.0-51.0); HEMOGLOBIN 10.4 g/dL (13.6-17.8); MEAN CORPUS HGB CONC 37.8 g/dL (32.0-36.0); MEAN CORPUSCULAR HEMOGLOB 34.9 pg (26.0-34.0); MEAN CORPUSCULAR VOLUME 92.3 fL (80-100); MEAN PLATELET VOLUME 9.1 fL (9.2-13.0); MONOCYTES ABSOLUTE 0.02 10/3/uL (0.21-1.20); NEUTROPHILS ABSOLUTE 0.25 10/3/uL (2.02-8.40); RBC DISTRIBUTION WIDTH 13.3 % (12.0-16.0); RED CELL COUNT 2.98 10/6/uL (4.7-6.1)
[2016-12-20 06:24] LABS: PLATELET COUNT 43 10/3/uL (150-400); WHITE BLOOD CELLS 0.5 10/3/uL (4.5-10.5)
[2016-12-20 06:30] LABS: BURR CELLS 1+ (3-10/OIF) (0-2/OIF); LYMPHOCYTES 40 %; SEGMENTED NEUTROPHIL (0) 60 %; TEARDROP SHAPED RBCS FEW (3-10/OIF); TOTAL NUCLEATED CELLS 10
[2016-12-21 06:41] LABS: HEMATOCRIT 28.1 % (40.0-51.0); HEMOGLOBIN 10.5 g/dL (13.6-17.8); MANUAL DIFF YES %; MEAN CORPUS HGB CONC 37.4 g/dL (32.0-36.0); MEAN CORPUSCULAR HEMOGLOB 34.9 pg (26.0-34.0); MEAN CORPUSCULAR VOLUME 93.4 fL (80-100); MEAN PLATELET VOLUME 8.5 fL (9.2-13.0); PLATELET COUNT 35 10/3/uL (150-400); RBC DISTRIBUTION WIDTH 13.4 % (12.0-16.0); RED CELL COUNT 3.01 10/6/uL (4.7-6.1); WHITE BLOOD CELLS 0.6 10/3/uL (4.5-10.5)
[2016-12-21 06:51] LABS: BUN (BLOOD UREA NITROGEN) 8 MG/DL (6-23); CALCIUM, SERUM 7.7 MG/DL (8.5-10.4); CHLORIDE, SERUM 108 MMOL/L (96-112); CO2 (CARBON DIOXIDE) 22 MMOL/L (24-34); GFR AFRICAN AMERICAN 79 ML/MIN (>=60); GFR NON AFRICAN AMERICAN 68 ML/MIN (>=60); GLUCOSE, SERUM 70 MG/DL (60-99)
[2016-12-21 06:54] LABS: POTASSIUM, SERUM 4.7 MMOL/L (3.5-5.3); SODIUM, SERUM 139 MMOL/L (135-148)
[2016-12-21 07:14] LABS: BAND NEUTROPHILS 4 %; EOSINOPHILS 4 %; EOSINOPHILS ABSOLUTE (CALC) 0.02 10/3/uL (0.0-0.53); LYMPHOCYTES 36 %; LYMPHOCYTES ABSOLUTE (CALC) 0.22 10/3/uL (0.67-4.30); MONOCYTES 4 %; MONOCYTES ABSOLUTE (CALC) 0.02 10/3/uL (0.21-1.20); NEUTROPHILS ABSOLUTE (CALC) 0.34 10/3/uL (2.02-8.40); SEGMENTED NEUTROPHIL (0) 52 %; TOTAL NUCLEATED CELLS 100
[2016-12-21 07:15] LABS: RBC MORPHOLOGY NORM (NORMAL)
[2016-12-22 05:38] LABS: BUN (BLOOD UREA NITROGEN) 5 MG/DL (6-23); CALCIUM, SERUM 7.8 MG/DL (8.5-10.4); CHLORIDE, SERUM 110 MMOL/L (96-112); CO2 (CARBON DIOXIDE) 23 MMOL/L (24-34); CREATININE 0.98 MG/DL (0.70-1.30); GFR AFRICAN AMERICAN 101 ML/MIN (>=60); GFR NON AFRICAN AMERICAN 87 ML/MIN (>=60); POTASSIUM, SERUM 4.8 MMOL/L (3.5-5.3); SODIUM, SERUM 141 MMOL/L (135-148)
[2016-12-22 05:51] LABS: HEMOGLOBIN 10.5 g/dL (13.6-17.8); MEAN CORPUS HGB CONC 36.2 g/dL (32.0-36.0); MEAN CORPUSCULAR HEMOGLOB 34.2 pg (26.0-34.0); MEAN CORPUSCULAR VOLUME 94.5 fL (80-100); MEAN PLATELET VOLUME 9.4 fL (9.2-13.0); RBC DISTRIBUTION WIDTH 13.3 % (12.0-16.0); RED CELL COUNT 3.07 10/6/uL (4.7-6.1)
[2016-12-22 05:53] LABS: MANUAL DIFF YES %; PLATELET COUNT 31 10/3/uL (150-400); WHITE BLOOD CELLS 0.5 10/3/uL (4.5-10.5)
[2016-12-22 05:54] LABS: GLUCOSE, SERUM 101 MG/DL (60-99)
[2016-12-22 06:19] LABS: EOSINOPHILS 10 %; EOSINOPHILS ABSOLUTE (CALC) 0.05 10/3/uL (0.0-0.53); LYMPHOCYTES 40 %; NEUTROPHILS ABSOLUTE (CALC) 0.25 10/3/uL (2.02-8.40); RBC MORPHOLOGY NORM (NORMAL); SEGMENTED NEUTROPHIL (0) 50 %; TOTAL NUCLEATED CELLS 10
[2016-12-22] MEDS ORDERED: ADDERALL5 MG PO (17:01)
[2016-12-22] MEDS ORDERED: MEPRON SUS750 MG/5 M PO (17:03)
[2016-12-22] MEDS ORDERED: DEPAKOT500 PO (17:04)
[2016-12-22] MEDS ORDERED: PEP20 PO (17:05)
[2016-12-22] MEDS ORDERED: HABIT21 TOP (17:05)
[2016-12-22] MEDS ORDERED: NYS500UDL PO (17:07)
[2016-12-22] MEDS ORDERED: PR25 PO (17:09)
== END 2016-12-22 18:50 | disposition home or self-care (01) | DRG 975 ==
LOC: ER 14:23 → 2SO 17:52
PROVIDERS: Emergency Medicine; Hospitalist; Internal Medicine; Nurse Practitioner Family
DX: B20 Human immunodeficiency virus [HIV] disease (principal); B59 Pneumocystosis; N17.9 Acute kidney failure, unspecified; D61.818 Other pancytopenia; F14.20 Cocaine dependence, uncomplicated; B19.20 Unspecified viral hepatitis C without hepatic coma; K21.9 Gastro-esophageal reflux disease without esophagitis; G24.01 Drug induced subacute dyskinesia; Z82.49 Family history of ischemic heart disease and other diseases of the circulatory system; Z83.3 Family history of diabetes mellitus; F17.210 Nicotine dependence, cigarettes, uncomplicated; E87.6 Hypokalemia; R13.10 Dysphagia, unspecified; F31.9 Bipolar disorder, unspecified; J44.9 Chronic obstructive pulmonary disease, unspecified; Z91.19 Patient's noncompliance with other medical treatment and regimen; F98.8 Other specified behavioral and emotional disorders with onset usually occurring in childhood and adolescence; R16.1 Splenomegaly, not elsewhere classified
CPT/HCPCS: 70553; 71010; 74176; 80048; 80053; 80305; 81001; 82330; 83605; 83615; 83690; 83735; 83880; 84100; 84145; 84484; 85025; 85610; 85730; 86361; 87015; 87040; 87116; 87150; 87449; 92610-GN; 93005; 96374; 96376; 99285; A9270-GY; A9577; C9113; J0456; J1170; J2405; J2550